=== PATIENT | male | born 1990 | race African-American/Black ===

== ENCOUNTER 2025-08-03 11:23 | Emergency (ER) | payer OTHER ==
[~2025-08-03] VITALS: Ht 182.9 cm; Wt 77.3 kg
[2025-08-03 11:26] VITALS: BP 150/87; TEMP 98.7; O2SAT 99
[2025-08-03] MEDS: FLUORESCEIN OPHTH 1 MG STRIP OD ONE (11:35)
[2025-08-03] MEDS: TETRACAINE 0.5% OPHTH SOLN 4ML OD ONE (11:35)
[2025-08-03] MEDS ORDERED: NAPR-885 PO (11:48)
[2025-08-03] MEDS ORDERED: APAP325T4 PO (11:48)
[2025-08-03] MEDS ORDERED: ERYT5OIN25 OD (12:12)
[2025-08-03] MEDS: ERYTHROMYCIN OPHTH OINT OD ONE (12:19)
== END 2025-08-03 12:25 | disposition home or self-care (01) ==
LOC: M ED 11:23
DX: S05.01XA Injury of conjunctiva and corneal abrasion without foreign body, right eye, initial encounter (principal); W50.4XXA Accidental scratch by another person, initial encounter; F17.200 Nicotine dependence, unspecified, uncomplicated; Z88.0 Allergy status to penicillin; Z88.2 Allergy status to sulfonamides; Z88.5 Allergy status to narcotic agent; Z91.010 Allergy to peanuts; Z91.030 Bee allergy status; Z79.1 Long term (current) use of non-steroidal anti-inflammatories (NSAID); Z79.2 Long term (current) use of antibiotics; Y93.67 Activity, basketball; Y99.9 Unspecified external cause status